=== PATIENT | female | born 1985 | race Two or more races ===

== ENCOUNTER 2019-05-04 16:43 | Emergency (ER) | payer SELFPAY ==
[~2019-05-04] VITALS: Ht 157.5 cm; Wt 81.0 kg
[2019-05-04 16:48] VITALS: BP 123/73
== END 2019-05-04 18:52 | disposition left against medical advice (07) ==
LOC: ER 16:43
DX: R55 Syncope and collapse (principal); Z53.21 Procedure and treatment not carried out due to patient leaving prior to being seen by health care provider